=== PATIENT | male | born 1955 | race Caucasian/White ===

== ENCOUNTER 2016-07-23 18:40 | Inpatient (IN) | payer MEDICARE ==
[2016-07-23] MEDS ORDERED: Naloxone* 0.4 MG/ML 1 ML VIAL IV PUSH ONE ×3 (18:53→22:03)
[2016-07-23] MEDS ORDERED: NS 0.9% 1000 ML* 1,000 ML IV ONE (18:54)
--- NOTE | 2016-07-23 21:06 | ED ---
I, Oh,Soohyun, scribed for Shen Bowser MD on 07/23/16 at 1900 . Substance Abuse/Use - HPI Summary HPI Summary: This 61 y/o male presents to ED via ambulance for heroine overdose today. According to pt, he had been clean for the last 3 month until he used heroine "just a little bit" today around 1500 PM. Pt was with his sister today who used together with pt. Narcan was given in field by EMT, and pt appears alert & oriented but drowsy. PMHx includes Hep C s/p liver transplant, HTN, and prostate CA. FHx is positive for DM, HTN, and unspecified CA. He denies any other substance abuse. - History Of Current Complaint Chief Complaint: EDOverdose Stated Complaint: OVERDOSE Hx Obtained From: Patient, Medical Records Timing Of Abuse: Binge Use Severity Initially: Moderate Severity Currently: Moderate Character: Stuporous Aggravating Factor(s): Nothing Alleviating Factor(s): Nothing Associated Signs And Symptoms: Intentional Ingestion - Allergies/Home Medications Allergies/Adverse Reactions: Allergies Allergy/AdvReac Type Severity Reaction Status Date / Time No Known Allergies Allergy Verified 07/23/16 20:10 PMH/Surg Hx/FS Hx/Imm Hx Cardiovascular History: Reports: Hx Hypertension Infectious Disease History: Reports: Hx Hepatitis - s/p liver transplant Denies: Traveled Outside the [place] in Last 30 Days - Family History Known Family History: Positive: Hypertension, Diabetes, Other - unspecified CA - Social History Alcohol Use: None Substance Use Type: Reports: Heroin Hx Tobacco Use: No Smoking Status (MU): Never Smoked Tobacco Review of Systems Negative: Fever Neurological: Other - positive for drowsiness Positive: Other - heroine OD All Other Systems Reviewed And Are Negative: Yes Physical Exam - Summary Physical Exam Summary: VITAL SIGNS: Reviewed. GENERAL: Patient is a well developed and nourished male who seems to be somnolent but with no acute distress. Patient is not in any acute respiratory distress. HEAD AND FACE: No signs of trauma. No ecchymosis, hematomas or skull depressions. No sinus tenderness. EYES: Pupils are pinpoint. EARS: Hearing grossly intact. Ear canals and tympanic membranes are within normal limits. MOUTH: Oropharynx within normal limits. NECK: Supple, trachea is midline, no adenopathy, no JVD, no carotid bruit, no c- spine tenderness, neck with full ROM. CHEST: Symmetric, no tenderness at palpation LUNGS: Clear to auscultation bilaterally. No wheezing or crackles. CVS: Regular rate and rhythm, S1 and S2 present, no murmurs or gallops appreciated. ABDOMEN: Soft, non-tender. No signs of distention. No rebound no guarding, and no masses palpated. Bowel sounds are normal. Positive well healed scar in the abdomen secondary to his liver transplant. EXTREMITIES: FROM in all major joints, no edema, no cyanosis or clubbing. NEURO: Alert and oriented x 3. No acute neurological deficits. Speech is normal and follows commands. Triage Information Reviewed: Yes Vital Signs On Initial Exam: Initial Vitals Temp Pulse Resp Pulse Ox 96.7 F 99 12 94 07/23/16 18:42 07/23/16 18:42 07/23/16 18:42 07/23/16 18:42 Vital Signs Reviewed: Yes Diagnostics - Vital Signs Vital Signs Temp Pulse Resp Pulse Ox 07/23/16 18:42 96.7 F 99 12 94 - Laboratory Lab Statement: Any lab studies that have been ordered have been reviewed, and results considered in the medical decision making process. Course/Dx - Course Assessment/Plan: This 61 y/o male presents to ED via ambulance for heroine overdose today. According to pt, he had been clean for the last 3 month until he used heroine "just a little bit" today around 1500 PM. Pt was with his sister today who used together with pt. Narcan was given in field by EMT, and pt appears alert & oriented but drowsy. PMHx includes Hep C s/p liver transplant , HTN, and prostate CA. FHx is positive for DM, HTN, and unspecified CA. He denies any other substance abuse. EMS reports he was unresponsive but after given 2 doses of Narcan he woke up. At the ED he still somnolent but easily arousable. He was given another 0.4 mg Narcan. Now he more alert and oriented and awake. He is awaiting for blood work results. He is hemodynamically stable and he is. A+O X 3. He has no complaints and he is resting comfortably. He will signed out to Dr. Jacome who is next ER attending. He will f/u test result and reassess. He will be doing the final disposition. - Diagnoses Differential Diagnosis/HQI/PQRI: Positive: Anxiety, Drug Abuse, Other - Opioid overdose Provider Diagnoses: Opioid overdose Discharge - Discharge Plan Condition: Stable Disposition: OTHER Discharge Disposition Comment: Patient signed out to Dr. Jacome Referrals: Alan PADILLA,Herminio Hicks [Primary Care Provider] - The documentation as recorded by the Leonides mcfarland Soohyun accurately reflects the service I personally performed and the decisions made by me, Shen Bowser MD.
[2016-07-23] MEDS ORDERED: NS 0.9% 250 ML* 250 ML ONE ×2 (22:10→22:11)
--- NOTE | 2016-07-23 22:20 | HP ---
H&P (Free Text) History and Physical: PCP: CLIFF Phillips MD Date/Time of Evaluation: 07/23/2016 2230 CC: polysubstance OD HPI: Mr Penn is a 61YO overweight male HX polysubstance abuse & addiction with recurrent OD's requiring intubation in the past who is currently quite somnolent requiring frequent verbal or light physical stimulation during history and exam to remain awake. He admits to smoking marijuana, taking alprazolam, & injecting heroin at his sister's today. He denies F/C, chest pain , SOB, cough, congestion, or other issues. At this time, he has no labs, ECG, or CXR available for review. They have been ordered & are pending. Vitals are hypoxic with sleep, otherwise stable. PMedHx HTN hepatitis C in remission x2 years s/p liver transplant prostate CA Allergies No Known Allergies Allergy (Verified 07/23/16 20:10) Medications Nursing to reconcile. PSurgHx liver transplant prostatectomy SocHx: no tobacco, occasional alcohol, occasional heroin & other recreational drugs; full code status FamHx: HTN & DM2 ROS: as above, otherwise reviewed and all were negative Constitutional: NAD, normally developed, overweight white male vitals: Vital Signs Temp 36.3 C 07/23/16 20:07 Pulse 109 07/23/16 22:02 Resp 12 07/23/16 20:07 BP 132/64 07/23/16 22:02 Pulse Ox 94 07/23/16 22:02 Intake & Output 07/22/16 07/23/16 07/23/16 23:59 11:59 23:59 Intake Total 1000 Balance 1000 Weight 83.915 kg Intake: IV Fluids 1000 HEENM: atraumatic; sclera/conjunctiva: non-icteric/clear; hearing: clinically intact; oropharynx: clear, mucosa moist Neck: soft tissue: non-tender; thyroid: normal Pulmonary: clear to auscultation bilaterally, good aeration, no accessory muscle use CV: RR/RR, normal S1S2, no carotid bruit, no jugular venous distention, 2+ B DP/ PT, no edema Abdominal: soft, non-distended, non-tender, no rebound/guarding/rigidity, normoactive bowel sounds, no hepatosplenomegaly or masses, no costovertebral angle tenderness Musculoskeletal: general: grossly intact; gait: too sedated to ambulate Integumental: normal appearance and texture of exposed skin Psychiatric orientation: AA&O to PPS affect: somnolent mood: acquiescent eye contact: poor content: reliable responses: slowed insight: poor Testing: ordered, pending ECG, personally reviewed: ordered, pending CXR, personally reviewed: ordered, pending Impression: 61M presenting with polysubstance OD/abuse involving primarily heroin, but also alprazolam & marijuana DIAGNOSIS & PLAN Primary polysubstance abuse : primarily heroin, but also alprazolam & marijuana : naloxone GTT : ICU monitoring : supplemental oxygen : supportive care : transition social worker consult : recommend psychiatry evaluation once medically cleared Secondary HTN : review meds once reconciled : PRN hydralazine with parameter HX chronic hep C in remission : s/p liver transplant : no acute issues Admission Rational: inpatient for life threatening heroin OD DVTp: SCDs, heparin SQ Code Status: full HCP:
[2016-07-23] MEDS ORDERED: Naloxone* 2 MG in NS 0.9% 250 ML* 245 ML IV SCH (23:00)
[2016-07-23 23:08] LABS: Hematocrit 40 % (42-52); Hemoglobin 13.1 g/dl (14.0-18.0); Mean Corpuscular HGB Conc 33 g/dl (31-36); Mean Corpuscular Hemoglobin 27 pg (27-31); Mean Corpuscular Volume 81 fL (80-94); Mean Platelet Volume 8 um3 (7.4-10.4); Red Cell Distribution Width 17 % (10.5-15); White Blood Count 11.3 10^3/ul (3.5-10.8)
[2016-07-23] MEDS ORDERED: Acetaminophen TAB* 325 MG PO PRN (23:22)
[2016-07-23] MEDS ORDERED: Ondansetron INJ* 2 MG/ML VIAL IV PRN (23:22)
[2016-07-23] MEDS ORDERED: hydrALAZINE IV* 20 MG/ML VIAL IV PRN (23:22)
[2016-07-23 23:23] LABS: ALT 30 U/L (7-52); AST 21 U/L (13-39); Albumin 4.3 g/dL (3.2-5.2); Alkaline Phosphatase 76 U/L (34-104); Anion Gap 9 mmol/L (2-11); BUN/Creatinine Ratio 12.5 (8-20); Blood Urea Nitrogen 19 mg/dL (6-24); CO2 Carbon Dioxide 27 mmol/L (22-32); Calcium 9.1 mg/dL (8.6-10.3); Chloride 99 mmol/L (101-111); EGFR African American 60.1 (>60); EGFR Non-African American 46.7 (>60); Globulin 2.7 g/dL (2-4); Glucose 134 mg/dL (70-100); Potassium 3.7 mmol/L (3.5-5.0); Sodium 135 mmol/L (133-145)
[2016-07-23 23:43] LABS: Acetaminophen < 15 mcg/mL; Alcohol < 10 mg/dL (<10); Salicylate < 2.50 mg/dL (<30)
[2016-07-23 23:54] LABS: TSH (Thyroid Stimulating Horm) 0.87 mcIU/mL (0.34-5.60)
[2016-07-24] MEDS: Naloxone* 2 MG in NS 0.9% 250 ML* 245 ML IV SCH ×2 (00:38→19:29)
[2016-07-24] MEDS ORDERED: NS 0.9% 1000 ML* 1,000 ML IV ONE (01:30)
[2016-07-24] MEDS ORDERED: NS 0.9% 1000 ML* 1,000 ML IV SCH (03:00)
[2016-07-24] MEDS: Heparin VIAL(*) 5000 UNITS/ML VIAL (FIVE THOUSAND) SUBCUT SCH ×3 (06:51→21:34)
[2016-07-24] MEDS: Omeprazole CAP* 20 MG PO SCH (06:52)
--- NOTE | 2016-07-24 07:42 | RAD ---
HISTORY: Hypoxia, overdose COMPARISONS: None VIEWS:1: Single frontal portable view of the chest at 11:35 PM FINDINGS: LINES AND TUBES: None. CARDIOMEDIASTINAL SILHOUETTE: The cardiomediastinal silhouette is normal for portable technique. PLEURA: The costophrenic angles are sharp. No pleural abnormalities are noted. LUNG PARENCHYMA: There is linear opacification of the right midlung field. ABDOMEN: The upper abdomen is clear. There is no subphrenic gas. BONES AND SOFT TISSUES: No bone or soft tissue abnormalities are noted. IMPRESSION: LINEAR ATELECTASIS VERSUS PLEUROPARENCHYMAL SCARRING OF THE RIGHT MIDLUNG
[2016-07-24] MEDS: Docusate CAP* 100 MG PO SCH ×2 (08:13→21:30)
--- NOTE | 2016-07-24 09:10 | PN ---
Subjective Date of Service: 07/24/16 Interval History: pt reports he is "ok", offers no complaints. Denies daily opioid use stating the last time he used Heroin was 3 weeks ago. He states he has a 40+ year hx and has been hospitalized before in the past. He states he is interested in a social work consult and would like to start methodone or Suboxone and has been on both in the past. Denies feeling lethargic or sleepy. Denies SOB or CP. No fevers or chills. Reports good appetite and ate his breakfast this morning. Objective Active Medications: Acetaminophen (Tylenol Tab*) 650 mg PO Q6H PRN PRN Reason: FEVER/PAIN Docusate Sodium (Colace Cap*) 200 mg PO BID [facility] Last Admin: 07/24/16 08:13 Dose: Not Given Heparin Sodium (Porcine) (Heparin Vial(*)) 5,000 units SUBCUT Q8HR [facility] Last Admin: 07/24/16 06:51 Dose: Not Given Hydralazine HCl (Apresoline Iv*) 10 mg IV Q4H PRN PRN Reason: Systolic >170 Naloxone HCl 2 mg/ Sodium (Chloride) 250 mls @ 25 mls/hr IV Q10H [facility] PRN Reason: 0.2 MG/HR Last Admin: 07/24/16 00:38 Dose: 25 mls/hr Omeprazole (Prilosec Cap*) 20 mg PO DAILY@0600 [facility] Last Admin: 07/24/16 06:52 Dose: Not Given Ondansetron HCl (Zofran Inj*) 4 mg IV Q6H PRN PRN Reason: NAUSEA Vital Signs 07/24/16 07/24/16 07/24/16 06:15 06:30 06:45 Temperature Pulse Rate 82 84 76 Respiratory 19 11 6 Rate Blood Pressure 106/63 100/63 104/63 (mmHg) O2 Sat by Pulse 95 92 97 Oximetry 07/24/16 07/24/16 07/24/16 07:00 07:15 07:30 Temperature Pulse Rate 77 76 76 Respiratory 11 8 9 Rate Blood Pressure 110/65 105/66 113/67 (mmHg) O2 Sat by Pulse 98 97 97 Oximetry 07/24/16 07/24/16 07:45 08:00 Temperature Pulse Rate 76 76 Respiratory 9 9 Rate Blood Pressure 114/67 112/75 (mmHg) O2 Sat by Pulse 97 97 Oximetry Oxygen Devices in Use Now: Nasal Cannula - 2L NC Appearance: 61 yo male laying in bed A+O x3 in NAD Eyes: No Scleral Icterus, PERRLA Ears/Nose/Mouth/Throat: NL Teeth, Lips, Gums, Mucous Membranes Moist Respiratory: Symmetrical Chest Expansion and Respiratory Effort, Clear to Auscultation Cardiovascular: NL Sounds; No Murmurs; No JVD, RRR, No Edema Abdominal: NL Sounds; No Tenderness; No Distention, - - obese Extremities: No Edema, No Clubbing, Cyanosis Skin: No Rash or Ulcers, No Nodules or Sclerosis Neurological: Alert and Oriented x 3, NL Sensation, NL Muscle Strength and Tone Lines/Tubes/Other Access: Clean, Dry and Intact Peripheral IV Nutrition: Taking PO's Result Diagrams: 07/24/16 09:30 07/24/16 09:30 Microbiology and Other Data: Microbiology 07/24/16 03:02 Nasal Screen MRSA (PCR)(ALYSIA) - Final Nasal Mrsa Negative Assess/Plan/Problems-Billing Assessment: Mr. Penn is a 61 yo male with a PMH 40+ year hx of opioid abuse with hx of OD requiring intubation in the past, HTN, Hep C s/p liver transplant who presented to the ED on 07/23 with heroine OD. - Patient Problems (1) Heroin overdose Comment: - 40+ year hx of intermittent abuse. He denies daily use. Denies hx of withdrawl seizures. - Pt awake, eating, does not appear lethargic. Plan to DC narcan gtt and continue close monitoring. - social work consult - pt states he would like methadone or suboxone, and rehab. (2) SIERRA (acute kidney injury) Comment: - resolved with IVFs (3) HTN (hypertension) Comment: - was hypotensive on admission, now resolved. (4) Hepatitis C s/p Liver Transplant Comment: - Pt denies complications or ETOH use/abuse. - continue prograf (5) GERD (gastroesophageal reflux disease) Comment: - continue PPI (6) DVT prophylaxis Comment: HSQ (7) Full code status Status and Disposition: inpatient with Heroin OD requiring Narcan gtt. Social work consult pending.
[2016-07-24 09:40] LABS: Hematocrit 35 % (42-52); Hemoglobin 11.5 g/dl (14.0-18.0); Mean Corpuscular HGB Conc 33 g/dl (31-36); Mean Corpuscular Hemoglobin 27 pg (27-31); Mean Corpuscular Volume 82 fL (80-94); Mean Platelet Volume 8 um3 (7.4-10.4); Red Blood Count 4.26 10^6/ul (4.0-5.4); Red Cell Distribution Width 17 % (10.5-15); White Blood Count 5.8 10^3/ul (3.5-10.8)
[2016-07-24 09:54] LABS: BUN/Creatinine Ratio 17.6 (8-20); Calcium 8.2 mg/dL (8.6-10.3); EGFR African American 108.6 (>60); EGFR Non-African American 84.4 (>60)
[2016-07-24] MEDS ORDERED: Tacrolimus CAP(*) 1 MG PO ONE (11:00)
[2016-07-24] MEDS ORDERED: FLUoxetine CAP* 20 MG PO SCH (14:00)
[2016-07-24 18:14] LABS: Urine Bilirubin Negative (Negative); Urine Glucose Negative (Negative); Urine Nitrite Negative (Negative)
[2016-07-24 18:37] LABS: Benzodiazepine Urine Screen Presumptive Positive (None Detect)
--- NOTE | 2016-07-24 20:04 | ED ---
I, Eriberto Hinton, scribed for Travis Jacome MD on 07/23/16 at 2059 . Progress - Progress Note Progress Note: Patient signed out by Dr. Bowser at shift change. Re-Evaluation - Re-Evaluation First Eval Re-Evaluation Time: 20:58 Change: Improved Comment: Patient is alert and oriented after Narcan. Second Eval Re-Evaluation Time: 22:03 Change: Worse Comment: Patient is difficult to rouse. O2 sat 82%. Course/Dx - Course Course Of Treatment: Signed out by Dr. Bowser at shift change. He was brought to the ED for evaluation of heroin overdose. Patient was given Narcan in the ED with improvement of his symptoms. He was observed for several hours in the ED. He will be admitted to Dr. Rowley's services. - Diagnoses Provider Diagnoses: Opioid overdose, Hypoxemia - Provider Notifications Discussed Care Of Patient With: Dr. Rowley (hospitalist) @ 2211: accepts admission. Discharge - Discharge Plan Condition: Stable Disposition: ADMITTED TO [facility] Referrals: Alan PADILLA,Herminio Hicks [Primary Care Provider] - The documentation as recorded by the amitaibJamaal quevedo Billy accurately reflects the service I personally performed and the decisions made by me, Travis Jacome MD.
[2016-07-24] MEDS ORDERED: Tacrolimus CAP(*) 1 MG PO SCH (21:00)
[2016-07-24] MEDS: FLUoxetine CAP* 20 MG PO SCH (21:31)
[2016-07-25] MEDS: Heparin VIAL(*) 5000 UNITS/ML VIAL (FIVE THOUSAND) SUBCUT SCH ×2 (05:08→15:11)
[2016-07-25] MEDS: Omeprazole CAP* 20 MG PO SCH (05:08)
[2016-07-25 08:53] LABS: Hematocrit 37 % (42-52); Mean Corpuscular HGB Conc 33 g/dl (31-36); Mean Corpuscular Hemoglobin 27 pg (27-31); Mean Corpuscular Volume 82 fL (80-94); Mean Platelet Volume 8 um3 (7.4-10.4); Red Blood Count 4.46 10^6/ul (4.0-5.4); Red Cell Distribution Width 17 % (10.5-15)
[2016-07-25] MEDS ORDERED: Tacrolimus CAP(*) 1 MG PO SCH (09:00)
[2016-07-25] MEDS ORDERED: Vortioxetine (NF) 10 MG TAB (FORMERLY Brintellix) PO SCH (09:00)
[2016-07-25] MEDS: FLUoxetine CAP* 20 MG PO SCH (09:03)
[2016-07-25] MEDS: Docusate CAP* 100 MG PO SCH (09:04)
[2016-07-25 09:11] LABS: BUN/Creatinine Ratio 12.7 (8-20); Calcium 8.6 mg/dL (8.6-10.3); EGFR African American 127.8 (>60); EGFR Non-African American 99.4 (>60); Potassium 4.7 mmol/L (3.5-5.0)
[2016-07-25 11:26] VITALS: BP 138/80
--- NOTE | 2016-07-25 11:53 | DCNOTE ---
Subjective Date of Service: 07/25/16 Interval History: . patient reports he understands he almost dies, he denies suicidal ideation and reports he only uses every few weeks to months. He is interested in [facility] treatment and states he will follow up. Denies any withdrawl symptoms - no tremors, sweating, hallucinations, abdominal pain, diarrhea or constipations. Denies fever or chills. No SOB or CP Objective Active Medications: Acetaminophen (Tylenol Tab*) 650 mg PO Q6H PRN PRN Reason: FEVER/PAIN Docusate Sodium (Colace Cap*) 200 mg PO BID [facility] Last Admin: 07/25/16 09:04 Dose: Not Given Fluoxetine HCl (Prozac Cap*) 40 mg PO BID [facility] Last Admin: 07/25/16 09:03 Dose: 40 mg Heparin Sodium (Porcine) (Heparin Vial(*)) 5,000 units SUBCUT Q8HR [facility] Last Admin: 07/25/16 05:08 Dose: 5,000 units Hydralazine HCl (Apresoline Iv*) 10 mg IV Q4H PRN PRN Reason: Systolic >170 Omeprazole (Prilosec Cap*) 20 mg PO DAILY@0600 [facility] Last Admin: 07/25/16 05:08 Dose: 20 mg Ondansetron HCl (Zofran Inj*) 4 mg IV Q6H PRN PRN Reason: NAUSEA Tacrolimus (Prograf Cap(*)) 1 mg PO BEDTIME [facility] Last Admin: 07/24/16 21:32 Dose: 1 mg Tacrolimus (Prograf Cap(*)) 2 mg PO QAM [facility] Last Admin: 07/25/16 09:02 Dose: 2 mg Vortioxetine (Trintellix (Nf)) 10 mg PO DAILY [facility] Last Admin: 07/25/16 09:43 Dose: Not Given Vital Signs 07/24/16 07/24/16 07/24/16 12:00 12:15 12:30 Temperature 97.3 F Pulse Rate 77 80 73 Respiratory 13 13 11 Rate Blood Pressure 115/64 125/64 (mmHg) O2 Sat by Pulse 96 96 96 Oximetry 07/24/16 07/24/16 07/24/16 12:45 13:00 13:15 Temperature Pulse Rate 88 75 81 Respiratory 16 10 14 Rate Blood Pressure 103/63 (mmHg) O2 Sat by Pulse 97 96 97 Oximetry 07/24/16 07/24/16 07/24/16 13:30 13:45 14:00 Temperature Pulse Rate 76 83 75 Respiratory 12 14 11 Rate Blood Pressure 116/66 (mmHg) O2 Sat by Pulse 98 97 97 Oximetry 07/24/16 07/24/16 07/24/16 14:15 14:30 14:45 Temperature Pulse Rate 76 86 76 Respiratory 11 13 10 Rate Blood Pressure (mmHg) O2 Sat by Pulse 96 96 97 Oximetry 07/24/16 07/24/16 07/24/16 15:00 15:15 15:45 Temperature 98.0 F Pulse Rate 81 78 76 Respiratory 15 13 16 Rate Blood Pressure 119/72 101/61 (mmHg) O2 Sat by Pulse 97 97 95 Oximetry 07/24/16 07/24/16 07/24/16 15:48 15:50 16:00 Temperature 98.0 F Pulse Rate 76 75 Respiratory 16 16 16 Rate Blood Pressure 101/61 110/68 (mmHg) O2 Sat by Pulse 95 95 Oximetry 07/24/16 07/24/16 07/24/16 18:35 19:16 23:07 Temperature 98.7 F 98.4 F Pulse Rate 83 80 Respiratory 14 16 Rate Blood Pressure 117/69 117/66 (mmHg) O2 Sat by Pulse 96 95 95 Oximetry 07/25/16 07/25/16 07/25/16 00:00 03:00 07:32 Temperature 97.9 F Pulse Rate 79 Respiratory 18 16 Rate Blood Pressure 134/73 (mmHg) O2 Sat by Pulse 95 94 Oximetry 07/25/16 07/25/16 07:45 11:12 Temperature 98.2 F Pulse Rate 81 Respiratory Rate Blood Pressure 138/80 (mmHg) O2 Sat by Pulse 99 97 Oximetry Oxygen Devices in Use Now: Nasal Cannula - 2L NC Appearance: 61 yo male laying in bed resting in NAD. A+O x3 Eyes: No Scleral Icterus, PERRLA Ears/Nose/Mouth/Throat: NL Teeth, Lips, Gums, Mucous Membranes Moist Neck: NL Appearance and Movements; NL JVP Respiratory: Symmetrical Chest Expansion and Respiratory Effort, Clear to Auscultation Cardiovascular: NL Sounds; No Murmurs; No JVD, RRR, No Edema Abdominal: NL Sounds; No Tenderness; No Distention Lymphatic: No Cervical Adenopathy Extremities: No Edema, No Clubbing, Cyanosis Skin: No Rash or Ulcers, No Nodules or Sclerosis Neurological: Alert and Oriented x 3, NL Sensation, NL Gait, NL Muscle Strength and Tone Lines/Tubes/Other Access: Clean, Dry and Intact Peripheral IV Nutrition: Taking PO's Result Diagrams: 07/25/16 08:03 07/25/16 08:03 Microbiology and Other Data: Microbiology 07/24/16 03:02 Nasal Screen MRSA (PCR)(ALYSIA) - Final Nasal Mrsa Negative Assess/Plan/Problems-Billing Assessment: Mr. Penn is a 61 yo male with a PMH 40+ year hx of opioid abuse with hx of OD requiring intubation in the past, HTN, Hep C s/p liver transplant who presented to the ED on 07/23 with heroine OD. - Patient Problems (1) Heroin overdose Comment: - 40+ year hx of intermittent abuse. He denies daily use. Denies hx of withdrawl seizures. - Pt awake, eating, does not appear lethargic. Plan to DC to home. - social work consult - pt states he would like methadone or suboxone, and rehab , SW has referred him to [facility] the pt states he plans to f/u (2) SIERRA (acute kidney injury) Comment: - resolved with IVFs (3) HTN (hypertension) Comment: - was hypotensive on admission, now resolved. (4) Hepatitis C s/p Liver Transplant Comment: - Pt denies complications or ETOH use/abuse. - continue home medications (5) GERD (gastroesophageal reflux disease) Comment: - continue PPI (6) DVT prophylaxis Comment: HSQ (7) Full code status Status and Disposition: inpatient with Heroin OD. Stable for DC to home. Referred to [facility]
--- NOTE | 2016-07-26 02:31 | DS ---
DISCHARGE SUMMARY: DATE OF ADMISSION: 07/23/16 DATE OF DISCHARGE: 07/25/16 PROVIDER: Yarely Herrera NP ATTENDING PHYSICIAN: Dr. Santiago *(report dictated by Yarely Herrera NP). PRIMARY CARE PROVIDER: [facility]. PSYCHIATRIST: Dr. Annmarie Pereyra. PRIMARY DIAGNOSES: 1. Polysubstance abuse/overdose. 2. Acute kidney injury. SECONDARY DIAGNOSES: 1. Hypertension. 2. Hepatitis C in remission x2 years. 3. Status post liver implant. 4. History of prostate cancer. 5. Long-term history of polysubstance abuse, 40 plus years. DISCHARGE MEDICATIONS: 1. Epivir-HBV 100 mg p.o. daily. 2. Protonix 20 mg p.o. daily. 3. Vortioxetine HBr 10 mg p.o. daily. 4. Prograf 2 mg p.o. q.a.m. 5. Prograf 1 mg p.o. at bedtime. 6. Prozac 20 mg p.o. t.i.d. (please note this was checked with the patient's pharmacist). 7. Lisinopril 30 mg p.o. daily. 8. Lamivudine 100 mg p.o. daily. HISTORY OF PRESENT ILLNESS AND HOSPITAL COURSE: Please see history and physical by Dr. Rowley for full admission details; but in summary, this is a 61-year-old male with a history of a long-term polysubstance abuse and addiction with history of ODs in the past, who presented to the emergency department on 07/23/16 with report of heroin overdose per EMS. The patient was reported to be with his sister on the day of admission in which they have a history of using together. EMS was summoned, the patient was brought to [facility] for further evaluation. In the emergency department, the patient was alert and oriented x3, but drowsy. He was given Narcan multiple times in the emergency department and continued to be lethargic, so he was started on Narcan drip and admitted to the intensive care unit overnight. The patient was noted to have acute kidney injury with a creatinine of 1.52 on admission. This was thought to be secondary to hypoperfusion or dehydration. The patient was given IV fluids overnight and his acute kidney injury resolved by the next morning. As well, the Narcan drip was turned off the following morning as the patient was alert and oriented x3, sitting up, eating in bed and independent with his actions with no lethargy noted. The patient was transferred to the medical floor and continued to be monitored overnight. The patient has done well throughout his hospitalization. He has remained hemodynamically stable. Initially on admission, he required 10 L of oxygen, but this was weaned off fairly quickly and he is remained on room air. No fevers or chills noted. The patient was seen in evaluation by Social Work who gave the patient resources for outpatient rehab therapy. The patient reports that he is interested in rehab at this time as an outpatient. I spoke to the patient's , who reports he only uses 1 to 2 times a month and has not had overdose in quite sometime and reports the patient has been "very careful." He has a long- term history of 40 plus years with polysubstance abuse. The patient's reports she has "followups with his PCP as well as his psychiatrist after discharge and plans for outpatient rehab [facility] at [facility] or [facility]." The patient agrees with this plan of care. The patient has had no withdrawal symptoms throughout hospitalization. DISCHARGE PLAN: The patient is stable for discharge to home with close followup with his primary care provider and his psychiatrist. Per , these appointments were made. TIME SPENT: Approximately 60 minutes were spent on this discharge. YARELY HERRERA NP CC: [facility]; Dr. Annmarie Pereyra* [id number]/[facility]PS #: [id number] KRISTYN
== END 2016-07-25 16:30 | disposition home or self-care (01) | DRG 918 ==
LOC: ED 18:40 → ICU 23:28 → MED 07-24 15:57
PROVIDERS: ADMIT Hospitalist; ATTEND Hospitalist
DX: T40.1X1A Poisoning by heroin, accidental (unintentional), initial encounter (principal); N17.9 Acute kidney failure, unspecified; Z94.4 Liver transplant status; I10 Essential (primary) hypertension; Z85.46 Personal history of malignant neoplasm of prostate; R09.02 Hypoxemia; Z83.3 Family history of diabetes mellitus; Z82.49 Family history of ischemic heart disease and other diseases of the circulatory system; Z80.9 Family history of malignant neoplasm, unspecified; E66.3 Overweight; B18.2 Chronic viral hepatitis C; T42.4X1A Poisoning by benzodiazepines, accidental (unintentional), initial encounter; T40.7X1A Poisoning by cannabis (derivatives), accidental (unintentional), initial encounter; Y92.9 Unspecified place or not applicable; K21.9 Gastro-esophageal reflux disease without esophagitis; E86.0 Dehydration; F11.10 Opioid abuse, uncomplicated; F19.10 Other psychoactive substance abuse, uncomplicated; F12.10 Cannabis abuse, uncomplicated; Z68.27 Body mass index [BMI] 27.0-27.9, adult
CPT/HCPCS: 36415; 71010; 80048; 80053; 80307; 80320; 80329; 81003; 84443; 85025; 87641; 93005; 94760; A9270-GY; G0480; J1644; J2310; J7507